=== PATIENT | male | born 2000 | race African-American/Black ===

== ENCOUNTER 2024-08-19 14:11 | Emergency (ER) | payer OTHER ==
[~2024-08-19] VITALS: Ht 170.2 cm; Wt 84.0 kg
[2024-08-19 14:24] VITALS: O2SAT 99
[2024-08-19] MEDS ORDERED: OCUFLX RIGHTEYE (14:47)
[2024-08-19 15:05] VITALS: BP 118/77; PULSE 82; RESP 18; TEMP 36.9; O2SAT 99
== END 2024-08-19 15:05 | disposition home or self-care (01) ==
LOC: ER 14:11
DX: S05.01XA Injury of conjunctiva and corneal abrasion without foreign body, right eye, initial encounter (principal); Z79.899 Other long term (current) drug therapy; X58.XXXA Exposure to other specified factors, initial encounter; Y93.89 Activity, other specified; Y92.89 Other specified places as the place of occurrence of the external cause; Y99.8 Other external cause status
CPT/HCPCS: 99283